=== PATIENT | male | born 1950 | race Caucasian/White ===

== ENCOUNTER 2017-04-04 10:39 | Inpatient (IN) | payer OTHER, MEDICARE ==
[~2017-04-04] VITALS: Ht 185.4 cm; Wt 116.9 kg
[~2017-04-04 10:39] MED LIST: AMLO10 PO; CEPH500C3 PO; DILA100C PO; DIOV320T6 PO; ESOM1CAP16 PO
[2017-04-04 10:40] VITALS: BP 155/85; PULSE 107; RESP 20; TEMP 99.5; O2SAT 95
[2017-04-04 11:08] VITALS: BP 146/76; PULSE 93; RESP 20; O2SAT 97
[2017-04-04] MEDS ORDERED: SODIUM CHLOR 0.9% 1000 ML INJ 1,000 ML IV SCH (11:11)
[2017-04-04] MEDS ORDERED: VALS1TAB70 PO (11:12)
[2017-04-04] MEDS ORDERED: TAMS0.4C4 PO (11:12)
[2017-04-04] MEDS ORDERED: ASPI-516 CHEW (11:12)
[2017-04-04] MEDS ORDERED: ESOM1CAP16 PO (11:12)
[2017-04-04] MEDS ORDERED: AMLO10TA2 PO (11:12)
[2017-04-04] MEDS ORDERED: PHEN100C PO (11:12)
[2017-04-04] MEDS ORDERED: MORPHINE SULFATE 2 MG/ML INJ IV PUSH ONE ×2 (11:15→15:45)
[2017-04-04] MEDS ORDERED: ONDANSETRON HCL 4 MG/2 ML VIAL IVP ONE (11:15)
[2017-04-04] MEDS ORDERED: SODIUM CHLORIDE 0.9% FLUSH 10 ML FLUSH IV FLUSH PRN ×2 (11:15→15:30)
[2017-04-04 11:41] LABS: AUTOMATED NEUTROPHIL # 14.2 TH/MM3 (1.8-7.7); BASOPHIL % 0.3 % (0.0-2.0); HEMATOCRIT 44.2 % (39.0-51.0); HEMOGLOBIN 15.9 GM/DL (13.0-17.0); LYMPH % 8.2 % (9.0-44.0); LYMPHOCYTE # 1.4 TH/MM3 (1.0-4.8); MEAN CELL VOLUME 98.8 FL (80.0-100.0); MEAN CORPUSCULAR HEMOGLOBIN 35.6 PG (27.0-34.0); MEAN PLATELET VOLUME 7.3 FL (7.0-11.0); MONO % 5.3 % (0.0-8.0); MONOCYTE # 0.9 TH/MM3 (0-0.9); NEUT % 86.2 % (16.0-70.0); PLATELET COUNT 227 TH/MM3 (150-450); RED BLOOD COUNT 4.48 MIL/MM3 (4.50-5.90); RED CELL DISTRIBUTION WIDTH 12.5 % (11.6-17.2); WHITE BLOOD COUNT 16.5 TH/MM3 (4.0-11.0)
[2017-04-04 12:07] LABS: ALBUMIN 4.1 GM/DL (3.4-5.0); ALT (GPT) 32 U/L (12-78); AST (GOT) 25 U/L (15-37); BICARBONATE 27.3 MEQ/L (21.0-32.0); BLOOD UREA NITROGEN 13 MG/DL (7-18); CALCIUM 9.3 MG/DL (8.5-10.1); CHLORIDE 93 MEQ/L (98-107); CREATININE 0.58 MG/DL (0.60-1.30); GLOMERULAR FILTRATION RATE 140 ML/MIN (>89); GLUCOSE,RANDOM 137 MG/DL (74-106); LIPASE 126 U/L (73-393); SODIUM (NA) 127 MEQ/L (136-145)
[2017-04-04 12:09] LABS: ALKALINE PHOSPHATASE 81 U/L (45-117); TOTAL BILIRUBIN ADULT 0.6 MG/DL (0.2-1.0); TOTAL PROTEIN 7.7 GM/DL (6.4-8.2)
[2017-04-04] MEDS ORDERED: IOHEXOL 350 MG/ML 10 ML VIAL (for RAD DIAG) IVCONTRAST ONE (13:00)
--- NOTE | 2017-04-04 13:09 | RADRPT ---
EXAM DATE/TIME: 04/04/2017 12:29 [place] COMPARISON: CT ABDOMEN & PELVIS W CONTRAST, April 30, 2015, 2:59. INDICATIONS : Abdominal pain. Not able to go to the bathroom. IV CONTRAST: 71 cc Omnipaque 350 (iohexol) IV ORAL CONTRAST: No oral contrast ingested. RADIATION DOSE: 14.56 CTDIvol (mGy) MEDICAL HISTORY : Seizures. Hypertension. Renal calculi. SURGICAL HISTORY : Splenectomy. ENCOUNTER: Initial ACUITY: 1 day PAIN SCALE: 0/10 LOCATION: abdomen TECHNIQUE: Volumetric scanning of the abdomen and pelvis was performed. Using automated exposure control and ad justment of the mA and/or kV according to patient size, radiation dose was kept as low as reasonably achievable to obtain optimal diagnostic quality images. DICOM format image data is available electro nically for review and comparison. FINDINGS: Examination of the lung bases demonstrates no abnormality. No pleural fluid is identified. No pulmona ry nodules are present. The liver is normal in size and free of focal defects. The spleen is surgical ly absent. A small splenule is present The gallbladder and pancreas are unremarkable. No intrahepatic or extrahepatic ductal dilatation is seen. The adrenal glands and kidneys appear normal bilaterally. No hydronephrosis or mass lesions are identified. There are findings of small bowel obstruction with a transition zone involving the distal ileum. The terminal ileum is decompressed. A retroaortic left renal vein is present which can be seen as a normal variation. Examination of the pelvis demonstrates no evidence of free fluid or pelvic mass. No abnormally enlarg ed inguinal or retroperitoneal lymph nodes are present. The bladder is unremarkable. The prostate gla nd is markedly enlarged impinging on the bladder base. No focal masses are identified. CONCLUSION: 1. Findings of distal small bowel obstruction. Followup examination is recommended if clinically rashawn cated. Naga Chappell MD on April 04, 2017 at 13:03 Board Certified Radiologist. This report was verified electronically.
[2017-04-04 14:23] VITALS: BP 127/77; PULSE 95; RESP 20; O2SAT 99
[2017-04-04 14:40] LABS: AMORPHOUS SEDIMENT, URINE RARE; BILIRUBIN, URINE NEG (NEG); BLOOD, URINE NEG (NEG); GLUCOSE,URINE NEG (NEG); KETONE, URINE NEG (NEG); MUCUS URINE FEW /lpf (OCC); NITRITE,URINE NEG (NEG); PH, URINE 7.5 (5.0-8.5); URINE COLOR YELLOW (YELLW/STRAW); URINE LEUKOCYTE ESTERASE NEG (NEG)
[2017-04-04] MEDS ORDERED: RESP: LIDOCAINE HCL 4% PF 5 ML NEB NEB ONE (15:15)
[2017-04-04] MEDS ORDERED: PIPERACIL-TAZO 3.375 GM PREMIX 50 ML IV ONE (15:30)
[2017-04-04] MEDS ORDERED: NALOXONE HCL 0.4 MG/ML AMP IV PUSH PRN (15:30)
[2017-04-04] MEDS: SODIUM CHLOR 0.9% 1000 ML INJ 1,000 ML IV SCH (16:01)
[2017-04-04 16:51] VITALS: BP 145/78; PULSE 85; RESP 17; TEMP 97.8; O2SAT 95
[2017-04-04] MEDS ORDERED: MORPHINE SULFATE 2 MG/ML INJ IV PUSH PRN ×2 (17:00→19:15)
[2017-04-04] MEDS ORDERED: ENALAPRILAT 1.25 MG/ML VIAL IV PUSH PRN (17:00)
--- NOTE | 2017-04-04 17:12 | HHI.HP ---
HPI Service [facility] Hospitalists Primary Care Physician Marino Blanton MD Admission Diagnosis distal small bowel obstruction Diagnoses: Chief Complaint: Abdominal pain Abdominal distention Nausea and vomiting Travel History International Travel<30 Days: No Contact w/Intl Traveler <30 Da: No Traveled to Known Affected Are: No Sepsis Criteria SIRS Criteria (2 or more): Heart rate over 90, WBC > 81412, < 4000 or > 10% bands Sepsis Criteria (SIRS+source): Infect source susp/known History of Present Illness This is a 66-year-old male with a past medical history significant for hypertension, GERD, seizure disorder, ABHINAV, CPAP compliant, BPH and recurrent small bowel obstruction who presents to [facility] ED with complaints of nausea, vomiting and abdominal pain 1 day. He also endorses significant abdominal distention for the past day. Patient states he developed increase belching and constipation for the past 2 days which he states has happened before before small bowel obstruction. Patient had 2 previous episodes of small bowel obstruction the last one being April of last year. Patient has a previous history of abdominal surgery of a splenectomy. Patient denies any fever or chills. He denies any chest pain or shortness of breath. He denies any complaints of hematuria, dysuria, diarrhea, not acutely or melena. He does report that the vomitus was dark but states he's been drinking a lot of prune juice. In the ED, CT abd/pelvis revealed findings of distal small bowel obstruction. Patient had NG tube placed in the ER. Review of Systems Except as stated in HPI: all other systems reviewed are Neg Past Family Social History Past Medical History Recurrent small bowel obstruction Hypertension GERD Seizure disorder with last seizure activity reported 40 years ago ABHINAV, CPAP compliant BPH Past Surgical History Splenectomy 2001 Reported Medications Tamsulosin 0.4 mg by mouth daily at bedtime Amlodipine 10 mg by mouth daily Valsartan 320 mg by mouth daily Aspirin 81 mg by mouth daily Phenytoin extended release 100 mg by mouth 3 times a day Esomeprazole DR 40 mg by mouth daily Allergies: Coded Allergies: latex (Unverified Allergy, Intermediate, RASH, 04/04/17) Active Ordered Medications Current Medications Medications (Trade) Dose Ordered Sig/Astrid Route Start Time Stop Time Status Last Admin Sodium Chloride 1,000 ml @ 100 mls/hr Q10H IV 04/04/17 15:27 04/04/17 16:01 (NS Flush) 2 ml UNSCH PRN IV FLUSH 04/04/17 15:30 (NS Flush) 2 ml BID IV FLUSH 04/04/17 21:00 (Narcan Inj) 0.4 mg UNSCH PRN IV PUSH 04/04/17 15:30 Family History Patient denies any significant/contributory family medical history Social History Patient has remote history of tobacco use having quit more than 30 years ago. He denies any alcohol consumption or illicit drug use. Physical Exam Vital Signs Vital Signs Date Time Temp Pulse Resp B/P (MAP) Pulse Ox O2 Delivery O2 Flow Rate FiO2 04/04/17 14:23 95 20 127/77 (94) 99 Room Air 04/04/17 11:08 93 20 146/76 (99) 97 Room Air 04/04/17 10:40 99.5 107 20 155/85 (108) 95 Room Air Physical Exam GENERAL: This is a well-nourished, well-developed male patient, in no apparent distress. Awake and alert. at the bedside. SKIN: No rashes, ecchymoses or lesions. Cool and dry. HEAD: Atraumatic. Normocephalic. No temporal or scalp tenderness. EYES: Pupils equal round and reactive. Extraocular motions intact. No scleral icterus. No injection or drainage. ENT: Nose without bleeding or purulent drainage. Throat without erythema, tonsillar hypertrophy or exudate. Uvula midline. Airway patent. NGT in place. NECK: Trachea midline. No JVD or lymphadenopathy. Supple, nontender, no meningeal signs. CARDIOVASCULAR: Regular rate and rhythm without murmurs, gallops, or rubs. RESPIRATORY: Clear to auscultation. Breath sounds equal bilaterally. No wheezes , rales, or rhonchi. GASTROINTESTINAL: Abdomen soft, distended, (+)diffuse tenderness to palpation. No guarding. MUSCULOSKELETAL: Extremities without clubbing, cyanosis, or edema. No joint tenderness, effusion, or edema noted. No calf tenderness. NEUROLOGICAL: Awake and alert. Able to move all extremities spontaneously. Motor and sensory grossly within normal limits. Five out of 5 muscle strength in all muscle groups. No focal neurologic finding appreciated. Normal speech. Laboratory Laboratory Tests Test 04/04/17 11:20 04/04/17 14:20 White Blood Count 16.5 Red Blood Count 4.48 Hemoglobin 15.9 Hematocrit 44.2 Mean Corpuscular Volume 98.8 Mean Corpuscular Hemoglobin 35.6 Mean Corpuscular Hemoglobin Concent 36.0 Red Cell Distribution Width 12.5 Platelet Count 227 Mean Platelet Volume 7.3 Neutrophils (%) (Auto) 86.2 Lymphocytes (%) (Auto) 8.2 Monocytes (%) (Auto) 5.3 Eosinophils (%) (Auto) 0.0 Basophils (%) (Auto) 0.3 Neutrophils # (Auto) 14.2 Lymphocytes # (Auto) 1.4 Monocytes # (Auto) 0.9 Eosinophils # (Auto) 0.0 Basophils # (Auto) 0.0 CBC Comment AUTO DIFF Differential Comment AUTO DIFF CONFIRMED Platelet Estimate NORMAL Platelet Morphology Comment NORMAL Red Cell Morphology Comment NORMAL Blood Urea Nitrogen 13 Creatinine 0.58 Random Glucose 137 Total Protein 7.7 Albumin 4.1 Calcium Level 9.3 Alkaline Phosphatase 81 Aspartate Amino Transf (AST/SGOT) 25 Alanine Aminotransferase (ALT/SGPT) 32 Total Bilirubin 0.6 Sodium Level 127 Potassium Level 3.7 Chloride Level 93 Carbon Dioxide Level 27.3 Anion Gap 7 Estimat Glomerular Filtration Rate 140 Lactic Acid Level 1.2 Lipase 126 Urine Color YELLOW Urine Turbidity CLEAR Urine pH 7.5 Urine Specific [place] 1.016 Urine Protein NEG Urine Glucose (UA) NEG Urine Ketones NEG Urine Occult Blood NEG Urine Nitrite NEG Urine Bilirubin NEG Urine Urobilinogen LESS THAN 2.0 Urine Leukocyte Esterase NEG Urine RBC 1 Urine Amorphous Sediment RARE Urine Mucus FEW Microscopic Urinalysis Comment CULT NOT INDICATED Result Diagram: 04/04/17 1120 04/04/17 1120 Imaging Last Impressions Abdomen/Pelvis CT 04/04/17 1111 Signed Impressions: Service Date/Time: Tuesday, April 04, 2017 12:29 - CONCLUSION: 1. Findings of distal small bowel obstruction. Followup examination is recommended if clinically indicated. MD Vanda Woods VTE Risk Assessment Vanda VTE Risk Assessment: Mod/High Risk (score >= 2) Caprini Risk Assessment Model Point Value = 1 Point Value = 2 Point Value = 3 Point Value = 5 Age 41-60 Minor surgery BMI > 25 kg/m2 Swollen legs Varicose veins or History of unexplained or recurrent spontaneous Oral contraceptives or hormone replacement Sepsis (< 1 month) Serious lung disease, including pneumonia (< 1 month) Abnormal pulmonary function Acute myocardial infarction Congestive heart failure (< 1 month) History of inflammatory bowel disease Medical patient at bed rest Age 61-74 Arthroscopic surgery Major open surgery (> 45 min) Laparoscopic surgery (> 45 min) Malignancy Confined to bed (> 72 hours) Immobilizing plaster cast Central venous access Age >= 75 History of VTE Family history of VTE Factor V Leiden Prothrombin [id number] Lupus anticoagulant Anticardiolipin antibodies Elevated serum homocysteine Heparin-induced thrombocytopenia Other congenital or acquired thrombophilia Stroke (< 1 month) Elective arthroplasty Hip, pelvis, or leg fracture Acute spinal cord injury (< 1 month) Prophylaxis Regimen Total Risk Factor Score Risk Level Prophylaxis Regimen 0-1 Low Early ambulation 2 Moderate Order ONE of the following: *Sequential Compression Device (SCD) *Heparin 5000 units SQ BID 3-4 Higher Order ONE of the following medications: *Heparin 5000 units SQ TID *Enoxaparin/Lovenox 40 mg SQ daily (WT < 150 kg, CrCl > 30 mL/min) *Enoxaparin/Lovenox 30 mg SQ daily (WT < 150 kg, CrCl > 10-29 mL/min) *Enoxaparin/Lovenox 30 mg SQ BID (WT < 150 kg, CrCl > 30 mL/min) AND/OR *Sequential Compression Device (SCD) 5 or more Highest Order ONE of the following medications: *Heparin 5000 units SQ TID (Preferred with Epidurals) *Enoxaparin/Lovenox 40 mg SQ daily (WT < 150 kg, CrCl > 30 mL/min) *Enoxaparin/Lovenox 30 mg SQ daily (WT < 150 kg, CrCl > 10-29 mL/min) *Enoxaparin/Lovenox 30 mg SQ BID (WT < 150 kg, CrCl > 30 mL/min) AND *Sequential Compression Device (SCD) Assessment and Plan Assessment and Plan 66-year-old male with a past medical history significant for hypertension, GERD, seizure disorder, ABHINAV, CPAP compliant and recurrent small bowel obstruction who presents to [facility] ED with complaints of nausea, vomiting and abdominal pain 1 day. Patient meets sepsis criteria with elevated white count 16.5, HR 107 and source of SBO and possible underlying colitis SBO, recurrent Hx of previous splenectomy - CT abd/pelvis reveals findings of distal small bowel obstruction, images reviewed by me - Consult ELIZABETH, angel recommendations - NPO - IV Zosyn - NGT placed in ED. Continue NGT to [facility]WS. - IVF - pain management Leukocytosis - Possibly reactive. Patient does not appear septic. Lactic acid 1.2 - Patient given dose of IV Zosyn in the ED. Continue. - Monitor white count Hyponatremia - Suspect secondary to volume depletion - IVF hydration - monitor sodium level Hypertension - Controlled at present - Resume home dose of antihypertensives once able to have po - Vasotec 1.25mg IV prn with parameters Seizure disorder - no reported seizure activity in 40 years - give IV Dilantin and will resume patient's home dose of Phenytoin once able to have po - seizure precautions BPH - will resume Flomax once able to have po DVT prophylaxis - bilateral SCD/JIGNESH hose Discussed Condition With Patient, Physician Certification 2 Midnight Certification Type: Admission for Inpatient Services Order for Inpatient Services The services are ordered in accordance with Medicare regulations or non- Medicare payer requirements, as applicable. In the case of services not specified as inpatient-only, they are appropriately provided as inpatient services in accordance with the 2-midnight benchmark. Estimated LOS (days): 3 3 days is the estimated time the patient will need to remain in the hospital, assuming treatment plan goals are met and no additional complications. Post-Hospital Plan: Not yet determined Starla Rodriguez Apr 04, 2017 17:11
[2017-04-04] MEDS ORDERED: ONDANSETRON HCL 4 MG/2 ML VIAL IVP PRN (17:15)
[2017-04-04] MEDS ORDERED: ACETAMINOPHEN 1000 MG/100 ML 100 ML IV PRN (17:30)
--- NOTE | 2017-04-04 18:26 | PD ---
HPI Chief Complaint: Abdominal Pain Time Seen by Provider: 11:05 Travel History International Travel<30 days: No Contact w/Intl Traveler<30days: No Traveled to known affect area: No History of Present Illness HPI This is a 66-year-old male who presents to the emergency department with 2 days of abdominal discomfort, constant, moderate severity associated with bloating, nausea and an episode of vomiting this morning, constant, worsening. He hasn't had a bowel movement in 3 days. 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 This feels similar to those episodes. PFSH Past Medical History Hx Anticoagulant Therapy: Yes (ASA) Blood Disorders: No (N) Cancer: Yes (SKIN) Cardiovascular Problems: Yes (HTN) Diminished Hearing: No Endocrine: No Gastrointestinal Disorders: Yes (2 prior blockages) GERD: Yes Genitourinary: Yes Hypertension: Yes Immune Disorder: No Implanted Vascular Access Dvce: No Kidney Stones: Yes (20 YEARS AGO) Musculoskeletal: No Neurologic: Yes Psychiatric: No Reproductive: No Respiratory: Yes Integumentary: Yes (hx MRSA) Seizures: Yes (40 YEARS AGO) Sleep Apnea: Yes (USES C-PAP) Past Surgical History Abdominal Surgery: Yes (SPLEENECTOMY 2001) Other Surgery: Yes (SPLENECTOMY 2001) Social History Alcohol Use: No Tobacco Use: No Substance Use: No Allergies-Medications (Allergen,Severity, Reaction): Coded Allergies: latex (Unverified Allergy, Intermediate, RASH, 04/04/17) Reported Meds & Prescriptions Reported Meds & Active Scripts Active Reported Tamsulosin (Tamsulosin HCl) 0.4 Mg Cap 0.4 Mg PO HS Amlodipine (Amlodipine Besylate) 10 Mg Tab 10 Mg PO DAILY Valsartan 320 Mg Tab 320 Mg PO DAILY Esomeprazole DR 40 Mg Capdr 40 Mg PO DAILY Phenytoin Extended 100 Mg Cap 100 Mg PO TID Aspirin 81 Mg Chew 81 Mg CHEW DAILY Review of Systems Except as stated in HPI: all other systems reviewed are Neg Physical Exam Narrative GENERAL:Well appearing, no acute distress SKIN: Focused skin assessment warm and dry. HEAD: Atraumatic. Normocephalic. EYES: Pupils equal and round. No injection or drainage. ENT: Moist mucous membranes NECK: Trachea midline. CARDIOVASCULAR: Regular rate and rhythm. No murmur appreciated. RESPIRATORY: Clear to auscultation. Breath sounds equal bilaterally. GASTROINTESTINAL: Abdomen soft, distended, absent bowel sounds, mildly tender to palpation diffusely MUSCULOSKELETAL: No obvious deformities. NEUROLOGICAL: Awake and alert. No obvious cranial nerve deficits. Moving all extremities. PSYCHIATRIC: Appropriate mood and affect; insight and judgment normal. Data Data Last Documented VS Vital Signs Date Time Temp Pulse Resp B/P (MAP) Pulse Ox O2 Delivery O2 Flow Rate FiO2 04/04/17 14:23 95 20 127/77 (94) 99 Room Air 04/04/17 10:40 99.5 Orders Orders Complete Blood Count With Diff (04/04/17 11:11) Comprehensive Metabolic Panel (04/04/17 11:11) Lipase (04/04/17 11:11) Lactic Acid (04/04/17 11:11) Urinalysis - C+S If Indicated (04/04/17 11:11) Ct Abd/Pel W Iv Contrast(Rout) (04/04/17 11:11) Iv Access Insert/Monitor (04/04/17 11:11) Ecg Monitoring (04/04/17 11:11) Oximetry (04/04/17 11:11) Ondansetron Inj (Zofran Inj) (04/04/17 11:15) Sodium Chlor 0.9% 1000 Ml Inj (Ns 1000 M (04/04/17 11:11) Sodium Chloride 0.9% Flush (Ns Flush) (04/04/17 11:15) Morphine Inj (Morphine Inj) (04/04/17 11:15) Iohexol 350 Inj (Omnipaque 350 Inj) (04/04/17 13:00) Lidocaine Pf 4% Neb (Lidocaine Pf 4% Neb (04/04/17 15:15) Jean Paul-Gastric Tube Insert/Mon (04/04/17 15:02) Admit Order (Ed Use Only) (04/04/17 15:17) Piperacil-Tazo 3.375 Gm Premix (Zosyn 3. (04/04/17 15:30) Labs Laboratory Tests Test 04/04/17 11:20 04/04/17 14:20 White Blood Count 16.5 TH/MM3 Red Blood Count 4.48 MIL/MM3 Hemoglobin 15.9 GM/DL Hematocrit 44.2 % Mean Corpuscular Volume 98.8 FL Mean Corpuscular Hemoglobin 35.6 PG Mean Corpuscular Hemoglobin Concent 36.0 % Red Cell Distribution Width 12.5 % Platelet Count 227 TH/MM3 Mean Platelet Volume 7.3 FL Neutrophils (%) (Auto) 86.2 % Lymphocytes (%) (Auto) 8.2 % Monocytes (%) (Auto) 5.3 % Eosinophils (%) (Auto) 0.0 % Basophils (%) (Auto) 0.3 % Neutrophils # (Auto) 14.2 TH/MM3 Lymphocytes # (Auto) 1.4 TH/MM3 Monocytes # (Auto) 0.9 TH/MM3 Eosinophils # (Auto) 0.0 TH/MM3 Basophils # (Auto) 0.0 TH/MM3 CBC Comment AUTO DIFF Differential Comment AUTO DIFF CONFIRMED Platelet Estimate NORMAL Platelet Morphology Comment NORMAL Red Cell Morphology Comment NORMAL Blood Urea Nitrogen 13 MG/DL Creatinine 0.58 MG/DL Random Glucose 137 MG/DL Total Protein 7.7 GM/DL Albumin 4.1 GM/DL Calcium Level 9.3 MG/DL Alkaline Phosphatase 81 U/L Aspartate Amino Transf (AST/SGOT) 25 U/L Alanine Aminotransferase (ALT/SGPT) 32 U/L Total Bilirubin 0.6 MG/DL Sodium Level 127 MEQ/L Potassium Level 3.7 MEQ/L Chloride Level 93 MEQ/L Carbon Dioxide Level 27.3 MEQ/L Anion Gap 7 MEQ/L Estimat Glomerular Filtration Rate 140 ML/MIN Lactic Acid Level 1.2 mmol/L Lipase 126 U/L Urine Color YELLOW Urine Turbidity CLEAR Urine pH 7.5 Urine Specific [place] 1.016 Urine Protein NEG mg/dL Urine Glucose (UA) NEG mg/dL Urine Ketones NEG mg/dL Urine Occult Blood NEG Urine Nitrite NEG Urine Bilirubin NEG Urine Urobilinogen LESS THAN 2.0 MG/DL Urine Leukocyte Esterase NEG Urine RBC 1 /hpf Urine Amorphous Sediment RARE Urine Mucus FEW /lpf Microscopic Urinalysis Comment CULT NOT INDICATED MDM Medical Decision Making Medical Screen Exam Complete: Yes Emergency Medical Condition: Yes Interpretation(s) Temperature is 99.5, mildly tachycardic, mild hypertension Leukocytosis 86% neutrophils Hyponatremia Lactic acid is 1.2 Lipase is 126 Urinalysis is negative for infection Last 24 hours Impressions Abdomen/Pelvis CT 04/04/17 1111 Signed Impressions: Service Date/Time: Tuesday, April 04, 2017 12:29 - CONCLUSION: 1. Findings of distal small bowel obstruction. Followup examination is recommended if clinically indicated. Naga Chappell MD Differential Diagnosis Small bowel obstruction, colitis, appendicitis, cholecystitis Narrative Course This is a 66-year-old male who presents to the emergency department with abdominal distention, vomiting and abdominal pain. Patient has a history of small bowel obstruction. He was placed on a monitor and an IV was established. Labs were obtained which demonstrate mild leukocytosis. CT abdomen and pelvis confirms a distal small bowel obstruction. NG tube was placed. He was given a dose of Zosyn and the patient will be admitted for further management. Diagnosis Primary Impression: SBO (small bowel obstruction) Admitting Information Admitting Physician Requests: Admit Yue Estrada MD Apr 04, 2017 18:26
[2017-04-04 20:00] VITALS: BP 155/78; PULSE 81; RESP 20; TEMP 97.7; O2SAT 98
[2017-04-04 20:07] VITALS: PULSE 79
[2017-04-04] MEDS: PANTOPRAZOLE SODIUM 40 MG VIAL IV PUSH SCH (21:53)
[2017-04-04] MEDS: SODIUM CHLORIDE 0.9% FLUSH 10 ML FLUSH IV FLUSH SCH (21:53)
[2017-04-04] MEDS: PHENYTOIN INJ 100 MG/2 ML VIAL IV PUSH SCH (21:53)
[2017-04-04] MEDS: PIPERACIL-TAZO 3.375 GM PREMIX 50 ML IV SCH (21:53)
[2017-04-05] VITALS (8 sets, daily range): BP systolic 126–144; BP diastolic 69–76; PULSE 71–89; RESP 18–20; TEMP 96.9–98.3; O2SAT 93–97
[2017-04-05] MEDS: SODIUM CHLOR 0.9% 1000 ML INJ 1,000 ML IV SCH ×4 (03:37→21:36)
[2017-04-05] MEDS: PIPERACIL-TAZO 3.375 GM PREMIX 50 ML IV SCH ×4 (03:42→21:34)
[2017-04-05] MEDS: PHENYTOIN INJ 100 MG/2 ML VIAL IV PUSH SCH ×3 (04:54→23:11)
[2017-04-05] MEDS: SODIUM CHLORIDE 0.9% FLUSH 10 ML FLUSH IV FLUSH SCH ×2 (07:30→21:00)
[2017-04-05 08:13] LABS: AUTOMATED NEUTROPHIL # 8.8 TH/MM3 (1.8-7.7); BASOPHIL % 0.3 % (0.0-2.0); EOSINOPHIL % 0.3 % (0.0-4.0); HEMATOCRIT 41.5 % (39.0-51.0); HEMOGLOBIN 14.7 GM/DL (13.0-17.0); LYMPH % 18.6 % (9.0-44.0); LYMPHOCYTE # 2.3 TH/MM3 (1.0-4.8); MEAN CELL VOLUME 100.4 FL (80.0-100.0); MEAN CORPUSCULAR HEMOGLOBIN 35.4 PG (27.0-34.0); MEAN CORPUSCULAR HGB CONC 35.3 % (32.0-36.0); MEAN PLATELET VOLUME 7.9 FL (7.0-11.0); MONO % 8.9 % (0.0-8.0); MONOCYTE # 1.1 TH/MM3 (0-0.9); NEUT % 71.9 % (16.0-70.0); PLATELET COUNT 224 TH/MM3 (150-450); RED BLOOD COUNT 4.14 MIL/MM3 (4.50-5.90); RED CELL DISTRIBUTION WIDTH 12.8 % (11.6-17.2); WHITE BLOOD COUNT 12.3 TH/MM3 (4.0-11.0)
[2017-04-05 08:23] LABS: BICARBONATE 27.3 MEQ/L (21.0-32.0); CALCIUM 8.6 MG/DL (8.5-10.1); CREATININE 0.58 MG/DL (0.60-1.30)
[2017-04-05] MEDS ORDERED: PHEN200C3 PO (09:57)
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
--- NOTE | 2017-04-05 11:04 | RADRPT ---
EXAM DATE/TIME: 04/05/2017 10:45 [facility] COMPARISON: CT ABDOMEN & PELVIS W CONTRAST, April 04, 2017, 12:29. ABDOMEN FLAT & UPRIGHT, May 01, 2015, 9 :29. ABDOMEN FLAT & UPRIGHT, April 30, 2015, 1:55. INDICATIONS : Follow up small bowel series. MEDICAL HISTORY : Renal calculi. small bowel obstruction. SURGICAL HISTORY : Splenectomy. ENCOUNTER: Subsequent ACUITY: 1 day PAIN SCORE: 0/10 LOCATION: abdomen FINDINGS: No definite free air is identified for technique. There are distended loops of small bowel maximum di ameter of 4.3 cm mainly in the left upper quadrant not significantly changed since the patient's CT e xamination from 04/04/2017, however the patient's prior KUB from 2015 also demonstrated dilated loops a t that time. CONCLUSION: No significant change in dilated loops of small bowel on the left side since CT examination from one day ago suspicious for partial small bowel obstruction. Joe Gaviria MD on April 05, 2017 at 11:01 Board Certified Radiologist. This report was verified electronically.
--- NOTE | 2017-04-05 13:44 | HHI.PR ---
Subjective Remarks abdominal things still have 3 out of 10 normal nausea and vomiting, unable to assess little flatus Objective Vitals Vital Signs Date Time Temp Pulse Resp B/P (MAP) Pulse Ox O2 Delivery O2 Flow Rate FiO2 04/05/17 12:00 96.9 71 18 132/69 (90) 95 04/05/17 08:00 98.0 85 18 137/71 (93) 93 04/05/17 04:38 97.6 89 18 126/70 (88) 95 04/05/17 00:19 98.3 86 20 144/76 (98) 95 04/05/17 00:00 89 04/04/17 20:07 79 04/04/17 20:00 97.7 81 20 155/78 (103) 98 04/04/17 16:51 97.8 85 17 145/78 (100) 95 04/04/17 14:23 95 20 127/77 (94) 99 Room Air I/O 04/04/17 04/04/17 04/04/17 04/05/17 04/05/17 04/05/17 07:00 15:00 23:00 07:00 15:00 23:00 Intake Total 50 ml 1050 ml Output Total 200 ml Balance 50 ml 850 ml Intake Oral 0 ml IV Total 50 ml 1050 ml Output Gastric Drainage Total 200 ml # Voids 0 3 # Bowel Movements 0 Result Diagram: 04/05/17 0559 04/05/17 0559 Objective Remarks GENERAL: This is a well-nourished, well-developed male patient, in no apparent distress. SKIN: No rashes, ecchymoses or lesions. Cool and dry. HEAD: Atraumatic. Normocephalic. No temporal or scalp tenderness. EYES: Pupils equal round and reactive. Extraocular motions intact. No scleral icterus. No injection or drainage. ENT: Nose without bleeding or purulent drainage.NG tube in place NECK: Trachea midline. No JVD or lymphadenopathy. Supple, nontender, no meningeal signs. CARDIOVASCULAR: Regular rate and rhythm without murmurs, gallops, or rubs. RESPIRATORY: Clear to auscultation. Breath sounds equal bilaterally. No wheezes , rales, or rhonchi. GASTROINTESTINAL: Abdomen soft, (+)diffuse tenderness to palpation. No guarding.positive bowel sounds MUSCULOSKELETAL: Extremities without clubbing, cyanosis, or edema. No joint tenderness, effusion, or edema noted. No calf tenderness. NEUROLOGICAL: Awake and alert. Able to move all extremities spontaneously. Motor and sensory grossly within normal limits. Five out of 5 muscle strength in all muscle groups. No focal neurologic finding appreciated. Normal speech. A/P Assessment and Plan 04/05/17: Sodium improved from 127-131, WBC dropped from 16-12,000, change Dilantin to 200 mg twice a day much in Dilantin level A/P: 66-year-old male with a past medical history significant for hypertension, GERD, seizure disorder, ABHINAV, CPAP compliant and recurrent small bowel obstruction who presents to [facility] ED with complaints of nausea, vomiting and abdominal pain 1 day. Patient meets sepsis criteria with elevated white count 16.5, HR 107 and source of SBO and possible underlying colitis SBO, recurrent Hx of previous splenectomy - CT abd/pelvis reveals findings of distal small bowel obstruction, images reviewed by me - Consult GS, appreciate recommendations - NPO - IV Zosyn - NGT placed in ED. Continue NGT to LIWS. - IVF - pain management Leukocytosis - Possibly reactive. Patient does not appear septic. Lactic acid 1.2 - Patient given dose of IV Zosyn in the ED. Continue. - Monitor white count Hyponatremia - Suspect secondary to volume depletion - IVF hydration - monitor sodium level Hypertension - Controlled at present - Resume home dose of antihypertensives once able to have po - Vasotec 1.25mg IV prn with parameters Seizure disorder - no reported seizure activity in 40 years - give IV Dilantin and will resume patient's home dose of Phenytoin once able to have po - seizure precautions BPH - will resume Flomax once able to have po DVT prophylaxis - bilateral SCD/JIGNESH Shayy Vallejo MD Apr 05, 2017 13:44
[2017-04-05] MEDS: PANTOPRAZOLE SODIUM 40 MG VIAL IV PUSH SCH (21:34)
[2017-04-06] VITALS (8 sets, daily range): BP systolic 128–146; BP diastolic 67–78; PULSE 68–91; RESP 18–21; TEMP 95.8–98; O2SAT 95–98
[2017-04-06] MEDS: PIPERACIL-TAZO 3.375 GM PREMIX 50 ML IV SCH ×4 (04:05→20:29)
[2017-04-06] MEDS: PHENYTOIN INJ 100 MG/2 ML VIAL IV PUSH SCH ×3 (05:56→23:26)
[2017-04-06] MEDS: SODIUM CHLOR 0.9% 1000 ML INJ 1,000 ML IV SCH ×2 (05:59→17:27)
[2017-04-06] MEDS: SODIUM CHLORIDE 0.9% FLUSH 10 ML FLUSH IV FLUSH SCH ×2 (09:00→20:29)
--- NOTE | 2017-04-06 09:41 | HHI.PR ---
Subjective Subjective Notes feels a little better today, no abdominal pain, had a BM. no nausea,emesis. Objective Vitals/I&O Vital Signs Date Time Temp Pulse Resp B/P (MAP) Pulse Ox O2 Delivery O2 Flow Rate FiO2 04/06/17 04:00 98.0 80 21 137/74 (95) 95 04/04/17 14:23 Room Air Labs Laboratory Tests Test 04/05/17 13:00 Phenytoin (Dilantin) Level 10.1 Radiology Last 48 hours Impressions Abdomen/Pelvis CT 04/04/17 1111 Signed Impressions: Service Date/Time: Tuesday, April 04, 2017 12:29 - CONCLUSION: 1. Findings of distal small bowel obstruction. Followup examination is recommended if clinically indicated. Naga Chappell MD Abdomen: Non-distended, Non-tender, BS normal A/P Assessment and Plan PSBO Clincally appears better Will clamp NG and check residual later today If tolerates will resume diet If he fails will consider surgery next week. If discharged he should FU with Dr. Overton if office to schedule elective hernia repair and lysis of adhesions. Robbie Vivas MD Apr 06, 2017 09:41
--- NOTE | 2017-04-06 19:42 | HHI.PR ---
Subjective Remarks descending better less abdominal pain he's been having water, possibly clamping NG tube and advancing diet Patient had a bowel movement Objective Vitals Vital Signs Date Time Temp Pulse Resp B/P (MAP) Pulse Ox O2 Delivery O2 Flow Rate FiO2 04/06/17 16:00 97.1 68 18 146/77 (100) 98 04/06/17 12:00 95.8 73 18 146/77 (100) 97 04/06/17 08:00 97.2 85 18 135/78 (97) 97 04/06/17 08:00 88 04/06/17 04:00 98.0 80 21 137/74 (95) 95 04/06/17 03:48 91 04/06/17 00:00 96.7 79 20 128/67 (87) 98 04/05/17 23:45 82 04/05/17 20:00 98.0 78 20 130/72 (91) 97 I/O 04/05/17 04/05/17 04/05/17 04/06/17 04/06/17 04/06/17 07:00 15:00 23:00 07:00 15:00 23:00 Intake Total 1050 ml 440 ml 800 ml 1600 ml Output Total 200 ml 250 ml 200 ml Balance 850 ml 190 ml 600 ml 1600 ml Intake Oral 240 ml 0 ml 1600 ml IV Total 1050 ml 200 ml 800 ml Output Gastric Drainage Total 200 ml 250 ml 200 ml # Voids 3 8 1 5 # Bowel Movements 1 Result Diagram: 04/05/17 0559 04/05/17 0559 Objective Remarks GENERAL: This is a well-nourished, well-developed patient, in no apparent distress. CARDIOVASCULAR: Regular rate and rhythm without murmurs, gallops, or rubs. RESPIRATORY: Clear to auscultation. Breath sounds equal bilaterally. No wheezes , rales, or rhonchi. GASTROINTESTINAL: Abdomen soft, non-tender, nondistended. Normal active bowel sounds MUSCULOSKELETAL: Extremities without clubbing, cyanosis, or edema. NEURO: Alert & Oriented x4 to person, place, time, situation. Moves all ext x4 A/P Assessment and Plan 04/06/17: Patient on clear liquid diet he had a one bowel movement today, clamp NG tube and advance diet per surgery recommendation,possible discharge once cleared by surgery A/P: 66-year-old male with a past medical history significant for hypertension, GERD, seizure disorder, ABHINAV, CPAP compliant and recurrent small bowel obstruction who presents to [facility] ED with complaints of nausea, vomiting and abdominal pain 1 day. Patient meets sepsis criteria with elevated white count 16.5, HR 107 and source of SBO and possible underlying colitis SBO, recurrent Hx of previous splenectomy - CT abd/pelvis reveals findings of distal small bowel obstruction, images reviewed by me - Consult GS, appreciate recommendations - NPO - IV Zosyn - NGT placed in ED. Continue NGT to LIWS. - IVF - pain management Leukocytosis - Possibly reactive. Patient does not appear septic. Lactic acid 1.2 - Patient given dose of IV Zosyn in the ED. Continue. - Monitor white count Hyponatremia - Suspect secondary to volume depletion - IVF hydration - monitor sodium level Hypertension - Controlled at present - Resume home dose of antihypertensives once able to have po - Vasotec 1.25mg IV prn with parameters Seizure disorder - no reported seizure activity in 40 years - give IV Dilantin and will resume patient's home dose of Phenytoin once able to have po - seizure precautions BPH - will resume Flomax once able to have po DVT prophylaxis - bilateral SCD/JIGNESH Shayy Vallejo MD Apr 06, 2017 19:42
[2017-04-06] MEDS: PANTOPRAZOLE SODIUM 40 MG VIAL IV PUSH SCH (20:29)
[2017-04-07] VITALS (7 sets, daily range): BP systolic 111–133; BP diastolic 57–75; PULSE 57–74; RESP 17–20; TEMP 96.5–97.7; O2SAT 95–98
[2017-04-07] MEDS: PIPERACIL-TAZO 3.375 GM PREMIX 50 ML IV SCH ×2 (05:09→09:47)
[2017-04-07] MEDS: SODIUM CHLOR 0.9% 1000 ML INJ 1,000 ML IV SCH ×2 (05:09→13:27)
[2017-04-07] MEDS: PHENYTOIN INJ 100 MG/2 ML VIAL IV PUSH SCH ×2 (06:00→13:41)
[2017-04-07 09:14] LABS: AUTOMATED NEUTROPHIL # 3.4 TH/MM3 (1.8-7.7); BASOPHIL # 0.1 TH/MM3 (0-0.2); BASOPHIL % 1.1 % (0.0-2.0); EOSINOPHIL # 0.2 TH/MM3 (0-0.4); EOSINOPHIL % 2.7 % (0.0-4.0); HEMATOCRIT 40.2 % (39.0-51.0); LYMPHOCYTE # 2.4 TH/MM3 (1.0-4.8); MEAN CELL VOLUME 100.4 FL (80.0-100.0); MEAN CORPUSCULAR HGB CONC 34.9 % (32.0-36.0); MEAN PLATELET VOLUME 7.3 FL (7.0-11.0); MONO % 10.6 % (0.0-8.0); MONOCYTE # 0.7 TH/MM3 (0-0.9); NEUT % 50.6 % (16.0-70.0); PLATELET COUNT 208 TH/MM3 (150-450); RED BLOOD COUNT 4.01 MIL/MM3 (4.50-5.90); RED CELL DISTRIBUTION WIDTH 12.7 % (11.6-17.2); WHITE BLOOD COUNT 6.8 TH/MM3 (4.0-11.0)
[2017-04-07] MEDS: SODIUM CHLORIDE 0.9% FLUSH 10 ML FLUSH IV FLUSH SCH (09:47)
--- NOTE | 2017-04-07 10:15 | HHI.PR ---
cc: Hans Buck MD Subjective Subjective Notes DAILY PROGRESS NOTE FOR SURGICAL ATTENDING, DR. HANS BUCK I Had a Bowel Movement Can I Have More to Eat Objective Vitals/I&O Vital Signs Date Time Temp Pulse Resp B/P (MAP) Pulse Ox O2 Delivery O2 Flow Rate FiO2 04/07/17 08:00 97.0 70 17 117/70 (86) 95 04/04/17 14:23 Room Air Labs Laboratory Tests Test 04/07/17 08:32 White Blood Count 6.8 Red Blood Count 4.01 Hemoglobin 14.0 Hematocrit 40.2 Mean Corpuscular Volume 100.4 Mean Corpuscular Hemoglobin 35.0 Mean Corpuscular Hemoglobin Concent 34.9 Red Cell Distribution Width 12.7 Platelet Count 208 Mean Platelet Volume 7.3 Neutrophils (%) (Auto) 50.6 Lymphocytes (%) (Auto) 35.0 Monocytes (%) (Auto) 10.6 Eosinophils (%) (Auto) 2.7 Basophils (%) (Auto) 1.1 Neutrophils # (Auto) 3.4 Lymphocytes # (Auto) 2.4 Monocytes # (Auto) 0.7 Eosinophils # (Auto) 0.2 Basophils # (Auto) 0.1 CBC Comment DIFF FINAL Differential Comment Radiology Last Impressions Abdomen X-Ray 04/05/17 0000 Signed Impressions: Service Date/Time: April 10:45 - CONCLUSION: No significant change in dilated loops of small bowel on the left side since CT examination from one day ago suspicious for partial small bowel obstruction. Joe Gaviria MD Abdomen/Pelvis CT 04/04/17 1111 Signed Impressions: Service Date/Time: Tuesday, April 04, 2017 12:29 - CONCLUSION: 1. Findings of distal small bowel obstruction. Followup examination is recommended if clinically indicated. Naga Chappell MD Cardiovascular: Regular Lungs: Clear Abdomen: Non-distended, Non-tender Extremities: Perfused A/P Problem List: (1) Incisional hernia ICD Codes: K43.2 - Incisional hernia without obstruction or gangrene Status: Acute (2) SBO (small bowel obstruction) ICD Codes: K56.69 - Other intestinal obstruction Status: Resolved Assessment and Plan PSBO Clincally appears better Advanced diet Possible discharge at tolerating regular diet If discharged he should FU with Dr. Overton if office to schedule elective hernia repair and lysis of adhesions. Attending Statement NOTE FOR SURGICAL ATTENDING, DR. HANS BUCK I attest that I had a [id number] encounter with the patient on the same day, and personally performed and documented my assessment and findings in the medical record. The following services were provided during this hospital visit: Chart data review, vital sign assessments/reviewing monitor data Review of consultations notes if present. Medication orders/review and/or management Ordering and/or reviewing lab tests Ordering and/or interpreting/reviewing x-rays and/or diagnostic studies Care of the patient and discussion of the patient with the care team Documentation time To help prompt me to consider important information that might be impacting today's encounter and assessment, information from prior notes written by myself or my colleagues may have been "brought forward/copy and pasted" into today's note. Problem Qualifiers (1) Incisional hernia: Qualified Codes: K43.2 - Incisional hernia without obstruction or gangrene Hans Buck MD Apr 07, 2017 10:14
[2017-04-07] MEDS ORDERED: REGL10TA5 PO (13:39)
--- NOTE | 2017-04-10 14:38 | HHI.DS ---
Discharge Summary Admission Date Apr 04, 2017 at 15:19 Discharge Date: Apr 07, 2017 Admitting Diagnosis distal small bowel obstruction (1) Hyponatremia ICD Code: E87.1 - Hypo-osmolality and hyponatremia Status: Resolved (2) Leukocytosis ICD Code: D72.829 - Elevated white blood cell count, unspecified Status: Resolved (3) SBO (small bowel obstruction) ICD Code: K56.69 - Other intestinal obstruction Status: Resolved Procedures see below Brief History - From Admission This is a 66-year-old male with a past medical history significant for hypertension, GERD, seizure disorder, ABHINAV, CPAP compliant, BPH and recurrent small bowel obstruction who presents to [facility] ED with complaints of nausea, vomiting and abdominal pain 1 day. He also endorses significant abdominal distention for the past day. Patient states he developed increase belching and constipation for the past 2 days which he states has happened before before small bowel obstruction. Patient had 2 previous episodes of small bowel obstruction the last one being April of last year. Patient has a previous history of abdominal surgery of a splenectomy. Patient denies any fever or chills. He denies any chest pain or shortness of breath. He denies any complaints of hematuria, dysuria, diarrhea, not acutely or melena. He does report that the vomitus was dark but states he's been drinking a lot of prune juice. In the ED, CT abd/pelvis revealed findings of distal small bowel obstruction. Patient had NG tube placed in the ER. CBC/BMP: 04/07/17 0832 PE at Discharge GENERAL: This is a well-nourished, well-developed patient, in no apparent distress. CARDIOVASCULAR: Regular rate and rhythm without murmurs, gallops, or rubs. RESPIRATORY: Clear to auscultation. Breath sounds equal bilaterally. No wheezes , rales, or rhonchi. GASTROINTESTINAL: Abdomen soft, non-tender, nondistended. Normal active bowel sounds MUSCULOSKELETAL: Extremities without clubbing, cyanosis, or edema. NEURO: Alert & Oriented x4 to person, place, time, situation. Moves all ext x4 Hospital Course 66 years old male admitted for leukocytosis sepsis SBO he has a history of splenectomy in the past patient started on nothing by mouth IV Zosyn NG tube surgery consulted patient started improving leukocytosis resolved he also had hyponatremia which improved with hydration, surgically patient for discharge to follow up as an outpatient [id number] encounter performed with the patient on discharge day, as well as physical exam, summary of hospitalization course and postdischarge plan has been D/W the patient. D/W nurse D/W rn case management Discharge medications reviewed and printed and signed, post discharge follow up visit with PCP and other specialist as well as Brief hospital course and discharge summary has been placed. See below Pt Condition on Discharge: Fair Discharge Disposition: Discharge Home Discharge Time: > 30 minutes Discharge Instructions DIET: Follow Instructions for: Heart Healthy Diet Activities you can perform: Weight Bearing as Sandra Follow up Referrals: Surgical - 2 Weeks with Naga Overton MD New Medications: Metoclopramide (Reglan) 10 Mg Tab 10 MG PO TIDAC for GP, #21 TAB 0 Refills Continued Medications: Aspirin (Aspirin) 81 Mg Chew 81 MG CHEW DAILY, TAB [address] (Esomeprazole DR) 40 Mg Capdr 40 MG PO DAILY, #30 CAP 0 Refills Phenytoin Extended (Phenytoin Extended) 200 Mg Cap 200 MG PO BID for Control Seizures, #90 CAP 0 Refills Tamsulosin (Tamsulosin) 0.4 Mg Cap 0.4 MG PO HS for Manage Prostate Problems, #30 CAP 0 Refills Valsartan (Valsartan) 320 Mg Tab 320 MG PO DAILY, #30 TAB 0 Refills Shayy Loco MD Apr 10, 2017 14:38
== END 2017-04-07 17:29 | disposition home or self-care (01) | DRG 389 ==
LOC: NEPE 10:39 → NEDA 15:19 → N07A 16:24
PROVIDERS: ADMIT Hospitalist; ATTEND Hospitalist
DX: K56.600 Partial intestinal obstruction, unspecified as to cause (principal); E87.1 Hypo-osmolality and hyponatremia; I10 Essential (primary) hypertension; D72.829 Elevated white blood cell count, unspecified; G40.909 Epilepsy, unspecified, not intractable, without status epilepticus; N40.0 Benign prostatic hyperplasia without lower urinary tract symptoms; K21.9 Gastro-esophageal reflux disease without esophagitis; G47.33 Obstructive sleep apnea (adult) (pediatric); K43.2 Incisional hernia without obstruction or gangrene; Z90.81 Acquired absence of spleen; Z87.891 Personal history of nicotine dependence; Z86.14 Personal history of Methicillin resistant Staphylococcus aureus infection
CPT/HCPCS: 74018; 74177; 80048; 80053; 80185; 81001; 83605; 83690; 85025; 94664; 96361; 96374; 96375; C9113; J1165; J2270; J2405; J2543; J7030; Q9967

== ENCOUNTER 2017-05-31 05:48 | Inpatient (IN) | payer OTHER, MEDICARE ==
[~2017-05-31] VITALS: Ht 182.9 cm; Wt 109.0 kg
[~2017-05-31 05:48] MED LIST changes: -AMLO10 PO; +AMLO10TA2 PO; +ASPI-516 CHEW; +CALC1TAB87 PO; -CEPH500C3 PO; -DILA100C PO; -DIOV320T6 PO; +FINA5TAB2 PO; +MULT-65 PO; +OCUVTAB4 PO; +OMEG100046 PO; +PHEN200C3 PO; +SAW450CA2 PO; +TAMS0.4C4 PO; +VALS1TAB70 PO; +VITA10004 PO; +VITA200C3 PO
[2017-05-31] MEDS ORDERED: CHLORHEXIDINE GLUCONATE 2 % 1 PACK (2 CLOTHS) TOPICAL PRN (06:15)
[2017-05-31] MEDS ORDERED: ceFAZolin 2 GM PREMIX 50 ML IV SCH (06:15)
[2017-05-31] MEDS ORDERED: METOPROLOL TARTRATE 25 MG TAB PO PRN (06:15)
[2017-05-31] MEDS ORDERED: LACTATED RINGER'S 1000 ML IV PRN (06:15)
[2017-05-31] MEDS ORDERED: POVIDONE IODINE 5% (ANTISEPSIS KIT) 4 APPLICATIONS EACH NARE PRN (06:15)
[2017-05-31] MEDS ORDERED: SODIUM CHLORID 0.9% 500 ML IV PRN (06:15)
[2017-05-31 06:47] LABS: AUTOMATED NEUTROPHIL # 2.6 TH/MM3 (1.8-7.7); BASOPHIL # 0.1 TH/MM3 (0-0.2); BASOPHIL % 0.9 % (0.0-2.0); EOSINOPHIL # 0.1 TH/MM3 (0-0.4); EOSINOPHIL % 1.1 % (0.0-4.0); HEMATOCRIT 45.2 % (39.0-51.0); HEMOGLOBIN 16.3 GM/DL (13.0-17.0); LYMPH % 45.8 % (9.0-44.0); LYMPHOCYTE # 2.9 TH/MM3 (1.0-4.8); MEAN CELL VOLUME 98.6 FL (80.0-100.0); MEAN CORPUSCULAR HEMOGLOBIN 35.6 PG (27.0-34.0); MEAN PLATELET VOLUME 7.4 FL (7.0-11.0); MONO % 10.8 % (0.0-8.0); MONOCYTE # 0.7 TH/MM3 (0-0.9); NEUT % 41.4 % (16.0-70.0); PLATELET COUNT 301 TH/MM3 (150-450); RED BLOOD COUNT 4.58 MIL/MM3 (4.50-5.90); RED CELL DISTRIBUTION WIDTH 13.1 % (11.6-17.2); WHITE BLOOD COUNT 6.4 TH/MM3 (4.0-11.0)
[2017-05-31 06:49] LABS: MEAN CORPUSCULAR HGB CONC 36.1 % (32.0-36.0)
[2017-05-31] MEDS ORDERED: SODIUM CHLORIDE 0.9% 20 ML VIAL ONE (07:14)
[2017-05-31] MEDS ORDERED: BUPIVACAINE LIPOSOME PF 1.3% 20 ML VIAL ONE (07:14)
[2017-05-31] MEDS ORDERED: MIDAZOLAM HCL 5 MG/5 ML VIAL ONE (07:14)
[2017-05-31] MEDS ORDERED: ACETAMINOPHEN 1000 MG/100 ML 100 ML IV ONE (07:40)
[2017-05-31 07:41] LABS: ACANTHOCYTES OCC (NORMAL)
[2017-05-31] MEDS ORDERED: fentaNYL CITRATE 250 MCG/5 ML AMP ONE (07:41)
[2017-05-31 07:42] LABS: SPHEROCYTES OCC (NORMAL)
[2017-05-31] MEDS ORDERED: SUGAMMADEX SODIUM 200 MG/2 ML VIAL IV PUSH ONE (10:57)
--- NOTE | 2017-05-31 11:17 | EKG ---
Date Performed: 05/31/2017 Time Performed: 06:27:46 PTAGE: 66 years EKG: Sinus rhythm WITH FIRST DEGREE AV BLOCK MODERATE INTRAVENTRICULAR CONDUCTION DELAY ABNORMAL ECG Since the prior t racing, there has been no significant change PREVIOUS TRACING : 05/18/2002 04.18 DOCTOR: Amy Villasenor Interpretating Date/Time 05/31/2017 11:13:38
[2017-05-31] MEDS ORDERED: PROPOFOL 200 MG/20 ML AMP IV ONE (12:00)
[2017-05-31] MEDS ORDERED: LIDOCAINE HCL 1% PF 5 ML SYRINGE OTHER ONE (12:00)
[2017-05-31] MEDS ORDERED: STERILE WATER FOR INJECTION 20 ML VIAL IV ONE (12:00)
[2017-05-31] MEDS ORDERED: PHENYLEPH/NS 1000 MCG/10 ML SYR IV ONE (12:00)
[2017-05-31] MEDS ORDERED: LACTATED RINGER'S 1000 ML INJ 2,000 ML IV ONE (12:00)
[2017-05-31] MEDS ORDERED: KETOROLAC TROMETHAMINE 30 MG/ML (IVP) VIAL IV PUSH ONE (12:00)
[2017-05-31] MEDS ORDERED: DEXAMETHASONE SOD PHOS 4 MG/ML VIAL IV ONE (12:00)
[2017-05-31] MEDS ORDERED: VECURONIUM BROMIDE 20 MG VIAL IV ONE (12:00)
[2017-05-31] MEDS ORDERED: ONDANSETRON HCL 4 MG/2 ML VIAL IV ONE (12:00)
[2017-05-31] MEDS ORDERED: ceFAZolin INJ 1,000 MG VIAL IV ONE (12:00)
[2017-05-31] MEDS ORDERED: ROCURONIUM INJ 50 MG/5 ML SYRINGE IV PUSH ONE (12:00)
[2017-05-31] MEDS ORDERED: ceFAZolin INJ 1,000 MG VIAL ONE (12:04)
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
[2017-05-31] MEDS ORDERED: DO NOT ADM ANY ANTICOAGULANT DRUGS PRN (12:13)
[2017-05-31] MEDS: LACTATED RINGER'S 1000 ML INJ 1,000 ML IV SCH ×2 (12:15→21:57)
[2017-05-31] MEDS ORDERED: ONDANSETRON HCL 4 MG/2 ML VIAL IV PUSH PRN (12:15)
[2017-05-31] MEDS ORDERED: MAGNESIUM HYDROXIDE SUSP 30 ML CUP PO PRN (12:15)
[2017-05-31] MEDS ORDERED: Post-op Orders (for Pharmacy) XX ONE (12:15)
[2017-05-31] MEDS ORDERED: HYDROmorphone HCL PF 2 MG/ML VIAL IV PUSH PRN (12:45)
[2017-05-31] MEDS ORDERED: *morphine SULFATE 4 MG/ML PERIprocedure ONLY ONE (13:10)
[2017-05-31] MEDS ORDERED: *morphine SULFATE 10 MG/ML PERIprocedure ONLY ONE (13:17)
[2017-05-31 16:00] VITALS: BP 136/81; PULSE 85; RESP 19; TEMP 97.9; O2SAT 96
[2017-05-31] MEDS: HYDROmorphone HCL 2 MG TAB PO PRN (16:01)
[2017-05-31] MEDS: ACETAMINOPHEN 1000 MG/100 ML 100 ML IV SCH ×2 (17:00→21:49)
[2017-05-31] MEDS: BETHANECHOL CHL 25 MG TAB PO SCH (17:51)
[2017-05-31 20:00] VITALS: BP 129/70; PULSE 83; RESP 20; TEMP 97.6; O2SAT 98
[2017-05-31] MEDS: TAMSULOSIN HCL 0.4 MG CAP PO SCH (21:46)
[2017-05-31] MEDS: PHENYTOIN SODIUM 100 MG CAP PO SCH (21:46)
[2017-05-31] MEDS: DOCUSATE SODIUM 100 MG CAP PO SCH (21:46)
[2017-06-01] VITALS: BP 122/71; PULSE 82; RESP 20; TEMP 97.5; O2SAT 95
[2017-06-01] MEDS: BETHANECHOL CHL 25 MG TAB PO SCH ×5 (00:36→23:47)
[2017-06-01 04:00] VITALS: BP 128/74; PULSE 88; RESP 18; TEMP 99; O2SAT 94
[2017-06-01 05:04] LABS: AUTOMATED NEUTROPHIL # 7.5 TH/MM3 (1.8-7.7); BASOPHIL % 0.3 % (0.0-2.0); HEMATOCRIT 42.1 % (39.0-51.0); HEMOGLOBIN 14.9 GM/DL (13.0-17.0); LYMPH % 18.9 % (9.0-44.0); MEAN CELL VOLUME 99.1 FL (80.0-100.0); MEAN CORPUSCULAR HEMOGLOBIN 35.1 PG (27.0-34.0); MEAN CORPUSCULAR HGB CONC 35.4 % (32.0-36.0); MEAN PLATELET VOLUME 7.5 FL (7.0-11.0); MONO % 9.8 % (0.0-8.0); PLATELET COUNT 219 TH/MM3 (150-450); RED BLOOD COUNT 4.24 MIL/MM3 (4.50-5.90); WHITE BLOOD COUNT 10.6 TH/MM3 (4.0-11.0)
[2017-06-01 05:09] LABS: BICARBONATE 26.4 MEQ/L (21.0-32.0); CALCIUM 8.3 MG/DL (8.5-10.1); CREATININE 0.47 MG/DL (0.60-1.30)
[2017-06-01] MEDS: ACETAMINOPHEN 1000 MG/100 ML 100 ML IV SCH ×4 (05:32→21:14)
[2017-06-01] MEDS: HYDROmorphone HCL 2 MG TAB PO PRN ×2 (05:36→10:07)
--- NOTE | 2017-06-01 07:32 | HHI.PR ---
Subjective Subjective Notes Patient slept well overnight. He is experiencing some pain this morning. He has had no nausea or vomiting. He has voided without difficulty. Objective Vitals/I&O Vital Signs Date Time Temp Pulse Resp B/P (MAP) Pulse Ox O2 Delivery O2 Flow Rate FiO2 06/01/17 04:00 99.0 88 18 128/74 (92) 94 05/31/17 15:00 Nasal Cannula 3 Labs Laboratory Tests Test 06/01/17 03:55 White Blood Count 10.6 Red Blood Count 4.24 Hemoglobin 14.9 Hematocrit 42.1 Mean Corpuscular Volume 99.1 Mean Corpuscular Hemoglobin 35.1 Mean Corpuscular Hemoglobin Concent 35.4 Red Cell Distribution Width 13.0 Platelet Count 219 Mean Platelet Volume 7.5 Neutrophils (%) (Auto) 71.0 Lymphocytes (%) (Auto) 18.9 Monocytes (%) (Auto) 9.8 Eosinophils (%) (Auto) 0.0 Basophils (%) (Auto) 0.3 Neutrophils # (Auto) 7.5 Lymphocytes # (Auto) 2.0 Monocytes # (Auto) 1.0 Eosinophils # (Auto) 0.0 Basophils # (Auto) 0.0 CBC Comment DIFF FINAL Differential Comment Blood Urea Nitrogen 12 Creatinine 0.47 Random Glucose 112 Calcium Level 8.3 Sodium Level 130 Potassium Level 3.8 Chloride Level 97 Carbon Dioxide Level 26.4 Anion Gap 7 Estimat Glomerular Filtration Rate 178 Narrative Exam He took his CPAP off. His lung sounds are clear anteriorly. His heart sounds are regular. His abdomen is soft. His PICC O dressing is intact with minimal dried bloody drainage. He is active normal bowel sounds. His extremities have SCDs on. He has no edema. A/P Assessment and Plan Postop day 1 status post exploratory laparotomy extensive adhesiolysis abdominal wall reconstruction with modified separation of components retrorectus mesh mesh abdominoplasty and PIC dressing placement. The patient has expected postoperative pain. He has not experienced nausea. We will keep him on clear liquids for now. I have encouraged him and his family to make sure he is up and walking the halls today. Naga Overton MD Jun 01, 2017 07:32
[2017-06-01 08:00] VITALS: BP 134/72; PULSE 83; RESP 17; TEMP 98.5; O2SAT 95
[2017-06-01] MEDS: LACTATED RINGER'S 1000 ML INJ 1,000 ML IV SCH ×2 (08:00→17:23)
[2017-06-01] MEDS: MULTIVITAMIN-OPHTHALMIC 1 TAB PO SCH (08:26)
[2017-06-01] MEDS: VITAMIN E 400 UNIT CAP PO SCH (08:26)
[2017-06-01] MEDS: DOCUSATE SODIUM 100 MG CAP PO SCH ×2 (08:27→21:09)
[2017-06-01] MEDS: MULTIVITAMIN TAB PO SCH (08:27)
[2017-06-01] MEDS: VALSARTAN 160 MG TAB PO SCH (08:27)
[2017-06-01] MEDS: PANTOPRAZOLE SOD 40 MG DELAYED RELEASE TAB PO SCH (08:27)
[2017-06-01] MEDS: CYANOCOBALAMIN 1,000 MCG TAB PO SCH (08:28)
[2017-06-01] MEDS: ASPIRIN 81 MG CHEW TAB CHEW SCH (08:28)
[2017-06-01] MEDS: FINASTERIDE 5 MG TAB PO SCH (08:28)
[2017-06-01] MEDS: CALCIUM/VITAMIN D 250 MG/125 U TAB PO SCH (08:28)
[2017-06-01] MEDS: PHENYTOIN SODIUM 100 MG CAP PO SCH ×2 (08:29→21:09)
[2017-06-01] MEDS ORDERED: NON-FORMULARY DRUG (Saw Palmetto (Serenoa Repens) 450 MG) PO SCH (09:00)
[2017-06-01] MEDS ORDERED: NON-FORMULARY DRUG (Omega-3/Dha/Epa/Fish Oil (Fish Oil 1,000 mg Softgel) 1 CAP) PO SCH (09:00)
[2017-06-01] MEDS: ENOXAPARIN SODIUM 40 MG/0.4 ML SYRINGE SQ SCH (11:48)
[2017-06-01 12:00] VITALS: BP 144/76; PULSE 93; RESP 19; TEMP 96.2; O2SAT 93
[2017-06-01] MEDS: KETOROLAC TROMETHAMINE 30 MG/ML (IVP) VIAL IVP PRN ×2 (14:25→21:10)
[2017-06-01 16:00] VITALS: BP 128/74; PULSE 100; RESP 18; TEMP 97.5; O2SAT 91
[2017-06-01 20:00] VITALS: BP 131/79; PULSE 97; RESP 20; TEMP 98.2; O2SAT 97
[2017-06-01] MEDS: TAMSULOSIN HCL 0.4 MG CAP PO SCH (21:09)
[2017-06-02] VITALS: BP 130/78; PULSE 93; RESP 18; TEMP 96.7; O2SAT 96
[2017-06-02] MEDS: LACTATED RINGER'S 1000 ML INJ 1,000 ML IV SCH (03:11)
[2017-06-02] MEDS: KETOROLAC TROMETHAMINE 30 MG/ML (IVP) VIAL IVP PRN (03:11)
[2017-06-02] MEDS: BETHANECHOL CHL 25 MG TAB PO SCH ×3 (05:43→18:12)
[2017-06-02] MEDS: ACETAMINOPHEN 1000 MG/100 ML 100 ML IV SCH (05:46)
[2017-06-02 08:00] VITALS: BP 139/82; PULSE 86; RESP 17; TEMP 97.4; O2SAT 95
--- NOTE | 2017-06-02 08:35 | HHI.PR ---
Subjective Subjective Notes Upon my arrival this morning patient was in the bathroom. He passed flatus and had a bowel movement. He says his pain is significantly decreased today. He is up moving around with a walker. His is at his bedside. He is voiding without difficulty. He is interested in transitioning off of narcotic pain medicines. He would like to have regular food. Objective Vitals/I&O Vital Signs Date Time Temp Pulse Resp B/P (MAP) Pulse Ox O2 Delivery O2 Flow Rate FiO2 06/02/17 08:00 97.4 86 17 139/82 (101) 95 05/31/17 15:00 Nasal Cannula 3 Cardiovascular: Regular Lungs: Clear Abdomen: Other (His lung sounds are clear. His heart sounds are regular. His abdomen is soft with normal bowel sounds. The picot dressing is intact there is minimal bloodstained drainage on the markie and the small gauze within his umbilicus.) Extremities: No edema, Perfused A/P Assessment and Plan Postop day 2 status post exploratory laparotomy extensive adhesiolysis abdominal wall reconstruction with modified separation of components retrorectus mesh mesh abdominoplasty and MARKIE dressing placement. Patient is doing very well today. Plan is to discontinue IV fluids and to transition to oral nonnarcotic pain medications. IV Tylenol and Toradol have been transitioned to oral equivalents. Patient would like to wear his abdominal binder only when up and around. Regular diet has been ordered. Anticipation for discharge tomorrow has been discussed with the patient and his . Wound care instructions have been provided. It is okay for the patient to shower just not to soak the MARKIE dressing. He will follow-up with me in the office this week. Naga Overton MD Jun 02, 2017 08:35
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
[2017-06-02] MEDS: CYANOCOBALAMIN 1,000 MCG TAB PO SCH (09:00)
[2017-06-02] MEDS: FINASTERIDE 5 MG TAB PO SCH (09:12)
[2017-06-02] MEDS: ASPIRIN 81 MG CHEW TAB CHEW SCH (09:12)
[2017-06-02] MEDS: MULTIVITAMIN-OPHTHALMIC 1 TAB PO SCH (09:13)
[2017-06-02] MEDS: DOCUSATE SODIUM 100 MG CAP PO SCH ×2 (09:13→19:40)
[2017-06-02] MEDS: CALCIUM/VITAMIN D 250 MG/125 U TAB PO SCH (09:13)
[2017-06-02] MEDS: VALSARTAN 160 MG TAB PO SCH (09:13)
[2017-06-02] MEDS: VITAMIN E 400 UNIT CAP PO SCH (09:13)
[2017-06-02] MEDS: PANTOPRAZOLE SOD 40 MG DELAYED RELEASE TAB PO SCH (09:13)
[2017-06-02] MEDS: MULTIVITAMIN TAB PO SCH (09:13)
[2017-06-02] MEDS: PHENYTOIN SODIUM 100 MG CAP PO SCH ×2 (09:14→19:40)
[2017-06-02] MEDS: KETOROLAC TROMETHAMINE 10 MG TAB PO PRN ×2 (09:19→15:24)
[2017-06-02 09:35] LABS: BICARBONATE 25.1 MEQ/L (21.0-32.0); CALCIUM 7.9 MG/DL (8.5-10.1); CREATININE 0.52 MG/DL (0.60-1.30); MAGNESIUM 1.7 MG/DL (1.5-2.5)
[2017-06-02 12:00] VITALS: BP 142/79; PULSE 96; RESP 17; TEMP 97.4; O2SAT 93
[2017-06-02] MEDS: ACETAMINOPHEN 500 MG CPLT PO PRN ×2 (12:07→18:13)
[2017-06-02] MEDS: ENOXAPARIN SODIUM 40 MG/0.4 ML SYRINGE SQ SCH (12:08)
[2017-06-02 16:00] VITALS: BP 146/80; PULSE 87; RESP 17; TEMP 97.2; O2SAT 98
[2017-06-02] MEDS: TAMSULOSIN HCL 0.4 MG CAP PO SCH (19:40)
[2017-06-02 20:00] VITALS: BP 143/76; PULSE 86; RESP 15; TEMP 97.3; O2SAT 95
[2017-06-03] VITALS: BP 143/77; PULSE 89; RESP 15; TEMP 98.1; O2SAT 96
[2017-06-03] MEDS: BETHANECHOL CHL 25 MG TAB PO SCH ×2 (00:08→05:33)
[2017-06-03] MEDS: ACETAMINOPHEN 500 MG CPLT PO PRN ×2 (00:09→08:55)
[2017-06-03 08:00] VITALS: BP 131/74; PULSE 85; RESP 17; TEMP 97.6; O2SAT 96
[2017-06-03] MEDS: CALCIUM/VITAMIN D 250 MG/125 U TAB PO SCH (08:53)
[2017-06-03] MEDS: MULTIVITAMIN-OPHTHALMIC 1 TAB PO SCH (08:54)
[2017-06-03] MEDS: PHENYTOIN SODIUM 100 MG CAP PO SCH (08:54)
[2017-06-03] MEDS: PANTOPRAZOLE SOD 40 MG DELAYED RELEASE TAB PO SCH (08:54)
[2017-06-03] MEDS: ASPIRIN 81 MG CHEW TAB CHEW SCH (08:54)
[2017-06-03] MEDS: DOCUSATE SODIUM 100 MG CAP PO SCH (08:54)
[2017-06-03] MEDS: FINASTERIDE 5 MG TAB PO SCH (08:54)
[2017-06-03] MEDS: VITAMIN E 400 UNIT CAP PO SCH (08:54)
[2017-06-03] MEDS: VALSARTAN 160 MG TAB PO SCH (08:55)
[2017-06-03] MEDS: CYANOCOBALAMIN 1,000 MCG TAB PO SCH (08:55)
[2017-06-03] MEDS: MULTIVITAMIN TAB PO SCH (08:55)
== END 2017-06-03 11:30 | disposition home or self-care (01) | DRG 337 ==
LOC: HSDC 05:48 → HSDI 12:12 → N07B 15:29
PROVIDERS: ADMIT Surgery Trauma Surgery; ATTEND Surgery Trauma Surgery
PROC: 0DN80ZZ Release Small Intestine, Open Approach (ICD-10-PCS; 2017-05-31)
PROC: 0JB80ZZ Excision of Abdomen Subcutaneous Tissue and Fascia, Open Approach (ICD-10-PCS; 2017-05-31)
PROC: 0KXL0ZZ Transfer Left Abdomen Muscle, Open Approach (ICD-10-PCS; 2017-05-31)
PROC: 0KXL0ZZ Transfer Left Abdomen Muscle, Open Approach (ICD-10-PCS; 2017-05-31)
PROC: 3E0M05Z Introduction of Adhesion Barrier into Peritoneal Cavity, Open Approach (ICD-10-PCS; 2017-05-31)
PROC: 0DNU0ZZ Release Omentum, Open Approach (ICD-10-PCS; principal; 2017-05-31 08:07)
PROC: 0WUF0JZ Supplement Abdominal Wall with Synthetic Substitute, Open Approach (ICD-10-PCS; 2017-05-31 08:07)
DX: K43.2 Incisional hernia without obstruction or gangrene (principal); I10 Essential (primary) hypertension; K66.0 Peritoneal adhesions (postprocedural) (postinfection); K21.9 Gastro-esophageal reflux disease without esophagitis; G47.30 Sleep apnea, unspecified; Z90.81 Acquired absence of spleen; Z91.040 Latex allergy status
CPT/HCPCS: 80048; 83735; 85025; 93005; 94150; C1765; C1781; C9290; J0131; J0690; J1100; J1650; J1885; J2250; J2270; J2370; J2405; J3010; J7120